=== PATIENT | male | born 1960 | race Caucasian/White ===

== ENCOUNTER 2020-03-20 12:05 | Emergency (ER) | payer OTHER ==
[~2020-03-20] VITALS: Ht 167.6 cm; Wt 77.3 kg
[2020-03-20 12:06] VITALS: BP 140/100
== END 2020-03-20 13:38 | disposition home or self-care (01) ==
LOC: EMS 12:07
DX: G47.00 Insomnia, unspecified (principal); Z20.828 Contact with and (suspected) exposure to other viral communicable diseases
CPT/HCPCS: 99283; U0003